=== PATIENT | female | born 1990 | race Caucasian/White ===

== ENCOUNTER 2017-01-22 14:48 | Emergency (ER) | payer SELFPAY ==
[2017-01-22 15:13] VITALS: TEMP 98.7
--- NOTE | 2017-01-22 15:49 | ED.PDOC ---
History of Present Illness - General Chief Complaint: GI Problem Stated Complaint: VOMITTING Time Seen by Provider: 01/22/17 14:53 Information Source: patient, RN notes reviewed, Vital Signs reviewed Exam Limitations: no limitations - History of Present Illness Initial Comments: Patient comes in with c/o of nausea and vomiting for the past ~2 weeks. Usually starts in the morning. Feels better after vomiting. Amount ranges from 1-4X/ day. No abdominal pain. No fever or chills. No urinary symptoms. No heartburn. Abdominal Pain Onset Location: other - No pain Pain Radiation: no radiation Quality: intermittent Timing/Duration: intermittent - over past several weeks Improving Factors: other - Vomiting Worsening Factors: nothing Associated Symptoms: nausea/vomiting Review of Systems - Review of Systems Constitutional: States: no symptoms reported. Denies: chills, fever, malaise Respiratory: States: no symptoms reported Cardiology: States: no symptoms reported Gastrointestinal/Abdominal: States: see HPI, nausea, vomiting. Denies: abdominal pain, constipation, diarrhea Genitourinary: States: no symptoms reported. Denies: dysuria, frequency Musculoskeletal: States: no symptoms reported Skin: States: no symptoms reported All other Systems: No Change from Baseline Past Medical History (General) - Patient Medical History Hx Asthma: No Hx Hypertension: No Hx Diabetes: No - Vaccination History Hx Tetanus, Diphtheria Vaccination: No Hx Influenza Vaccination: No Hx Pneumococcal Vaccination: No - Social History Hx Alcohol Use: No Hx Substance Use: Yes - RECOVERING Hx Substance Use Treatment: Yes - Female History Patient is a Female of Child Bearing Age (10 -59 yrs old): Yes Hx Last Menstrual Period: 12/20/16 Patient : No - Triage Comment ED Triage Comment: STATES TOOK MULTIPLE OTC PREG TESTS WHICH WERE NEG Family Medical History - Family History Mother Family History: Unknown Physical Exam - Physical Exam General Appearance: Alert, Comfortable, No apparent distress, Well Developed, Well Groomed, Well Hydrated, Well Nourished Neck: supple, normal inspection Respiratory: lungs clear, normal breath sounds, no respiratory distress, no accessory muscle use Cardiovascular/Chest: regular rate, rhythm, no gallop, no JVD, no murmur Gastrointestinal/Abdominal: normal bowel sounds, non tender, soft, no organomegaly, no pulsatile mass Extremity: normal inspection Neurologic: alert, normal mood/affect, oriented x 3 Skin Exam: normal color, warm/dry Comments: Vital Signs 01/22/17 15:00 Temperature 98.7 F Pulse Rate [ 81 MONITOR] Respiratory 18 Rate Blood Pressure 125/70 [Left Arm] O2 Sat by Pulse 99 Oximetry Progress - Progress Progress: 01/22/17 16:45 Benign exam with normal labs. Will treat with Protonix and Zofran Advised if not improving/resolving w/in 1 week follow up with PCP - Results/Orders Results/Orders: Laboratory Tests 01/22/17 01/22/17 01/22/17 15:07 15:52 15:52 WBC 9.4 RBC 4.69 Hgb 14.1 Hct 41.7 MCV 89.0 MCH 30.2 MCHC 33.9 RDW 11.9 Plt Count 197 MPV 8.1 Absolute Neuts (auto) 5.60 Absolute Lymphs (auto) 2.80 Absolute Monos (auto) 0.50 Absolute Eos (auto) 0.30 Absolute Basos (auto) 0.10 Neutrophils % 60.3 Lymphocytes % 30.1 Monocytes % 5.3 Eosinophils % 3.1 Basophils % 1.2 Sodium 137 Potassium 3.9 Chloride 103 Carbon Dioxide 29 Anion Gap 8.9 L BUN 14 Creatinine 0.70 BUN/Creatinine Ratio 20.0 Random Glucose 86 Serum Osmolality 273.6 L Calcium 10.0 Total Bilirubin 0.4 AST 32 ALT 43 Alkaline Phosphatase 39 L Serum Total Protein 8.3 H Albumin 4.7 Globulin 3.6 H Albumin/Globulin Ratio 1.3 Beta HCG, Quant < 0.6 Urine HCG, Qual Negative Departure - Departure Clinical Impression: Vomiting Qualifiers: Vomiting type: bilious vomiting Nausea presence: with nausea Qualified Code(s) : R11.14 - Bilious vomiting Time of Disposition: 16:47 Disposition: Discharge to Home or Self Care Condition: Good Departure Forms: ED Discharge - Pt. Copy, Patient Portal Self Enrollment Instructions: DI for Vomiting -- Adult Diet: resume usual diet Activity: increase activity as tolerated Prescriptions: Ondansetron Odt [Zofran ODT] 8 mg PO Q6HR PRN #20 tab PRN Reason: Nausea/Vomiting Pantoprazole Tablet [Protonix] 40 mg PO DAILY #30 tab Home Medications: Ambulatory Orders Ondansetron Odt [Zofran ODT] 8 mg PO Q6HR PRN #20 tab 01/22/17 Pantoprazole Tablet [Protonix] 40 mg PO DAILY #30 tab 01/22/17 Additional Instructions: If worsening or not improving in 1-2 weeks follow up with PCP
[2017-01-22 17:00] VITALS: BP 129/84; O2SAT 96
== END 2017-01-22 17:00 | disposition home or self-care (01) ==
LOC: ER 14:48
DX: R11.14 Bilious vomiting (principal)

== ENCOUNTER 2017-08-10 07:23 | Emergency (ER) | payer SELFPAY ==
[2017-08-10] MEDS ORDERED: KETOROLAC TROMETHAMINE INJ 30 MG/ML VIAL IV ONE (07:50)
[2017-08-10] MEDS ORDERED: SODIUM CHLORIDE 0.9% 1000ML 1,000 ML IVS ONE (07:50)
--- NOTE | 2017-08-10 07:51 | ED.PDOC ---
History of Present Illness - General Chief Complaint: Problem Stated Complaint: back pain, pain with urination Time Seen by Provider: 08/10/17 07:47 Source: patient Exam Limitations: no limitations - History of Present Illness Timing/Duration: unsure, 1 week Improving Factors: nothing Associated Symptoms: fever/chills, malaise Allergies/Adverse Reactions: Allergies NO KNOWN ALLERGY Allergy (Verified 08/10/17 07:39) Home Medications: Ambulatory Orders Ondansetron Odt [Zofran ODT] 8 mg PO Q6HR PRN #20 tab 01/22/17 Pantoprazole Tablet [Protonix] 40 mg PO DAILY #30 tab 01/22/17 Sulfa/Trimeth 800/160 (Ds) Tab [Bactrim DS Tab] 1 ea PO Q12HR #20 tab 08/10/17 Review of Systems - Review of Systems Constitutional: States: no symptoms reported EENTM: States: no symptoms reported Respiratory: States: no symptoms reported Cardiology: States: no symptoms reported Gastrointestinal/Abdominal: States: no symptoms reported Genitourinary: States: no symptoms reported Skin: States: no symptoms reported Neurological: States: no symptoms reported Endocrine: States: no symptoms reported Hematologic/Lymphatic: States: no symptoms reported Past Medical History (General) - Patient Medical History Hx Asthma: No Hx Hypertension: No Hx Diabetes: No Surgical History: other - Vaccination History Hx Tetanus, Diphtheria Vaccination: Yes Hx Influenza Vaccination: No Hx Pneumococcal Vaccination: No - Social History Hx Tobacco Use: Yes Hx Alcohol Use: No Hx Substance Use: No - RECOVERING Hx Substance Use Treatment: Yes - Female History Patient is a Female of Child Bearing Age (10 -59 yrs old): Yes Hx Last Menstrual Period: 12/20/16 Patient : No - Triage Comment ED Triage Comment: LMP APR 2017 with start of Depo provera control Family Medical History - Family History Mother Family History: Unknown Physical Exam - Physical Exam General Appearance: Alert, Comfortable Eye Exam: bilateral normal Ears, Nose, Throat: hearing grossly normal Neck: non-tender Respiratory: chest non-tender, lungs clear, normal breath sounds, no respiratory distress Cardiovascular/Chest: normal peripheral pulses, regular rate, rhythm, no edema, no gallop, no JVD, no murmur Back Exam: normal inspection, no CVA tenderness, no vertebral tenderness Extremity: normal range of motion, non-tender, normal inspection 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, no motor/sensory deficits, alert, normal mood/affect, oriented x 3 Progress - Results/Orders Results/Orders: Laboratory Tests 08/10/17 08/10/17 08/10/17 07:45 08:08 08:08 WBC 12.3 H RBC 4.38 Hgb 12.9 Hct 37.4 MCV 85.5 MCH 29.4 MCHC 34.4 RDW 12.6 Plt Count 183 MPV 7.5 Absolute Neuts (auto) 11.20 H Absolute Lymphs (auto) 0.70 L Absolute Monos (auto) 0.30 Absolute Eos (auto) 0.10 Absolute Basos (auto) 0.10 Neutrophils % 90.6 H Lymphocytes % 5.4 L Monocytes % 2.6 Eosinophils % 0.8 L Basophils % 0.6 Sodium 136 Potassium 3.7 Chloride 105 Carbon Dioxide 24 Anion Gap 10.7 L BUN 13 Creatinine 0.72 BUN/Creatinine Ratio 18.1 Random Glucose 108 H Serum Osmolality 272.6 L Calcium 9.1 Total Bilirubin 1.1 H AST 30 ALT 42 Alkaline Phosphatase 40 L Serum Total Protein 6.8 Albumin 3.9 Globulin 2.9 Albumin/Globulin Ratio 1.3 Urine Color Yellow Urine Appearance Sl cloudy Urine pH 7.0 Ur Specific Lafferty 1.020 Urine Protein Negative Urine Glucose (UA) Negative Urine Ketones Negative Urine Blood Trace-intact H Urine Nitrite Positive H Urine Bilirubin Negative Urine Urobilinogen 0.2 Ur Leukocyte Esterase Small H Urine RBC 5-10 H Urine WBC Tntc H Ur Epithelial Cells 3-5 Urine Bacteria 4+ H Departure - Departure Clinical Impression: Urinary tract infection Time of Disposition: 08:40 Disposition: Discharge to Home or Self Care Condition: Good Departure Forms: ED Discharge - Pt. Copy, Patient Portal Self Enrollment Diet: resume usual diet Prescriptions: Sulfa/Trimeth 800/160 (Ds) Tab [Bactrim DS Tab] 1 ea PO Q12HR #20 tab Home Medications: Ambulatory Orders Ondansetron Odt [Zofran ODT] 8 mg PO Q6HR PRN #20 tab 01/22/17 Pantoprazole Tablet [Protonix] 40 mg PO DAILY #30 tab 01/22/17 Sulfa/Trimeth 800/160 (Ds) Tab [Bactrim DS Tab] 1 ea PO Q12HR #20 tab 08/10/17
[2017-08-10] MEDS ORDERED: cefOXitin SODIUM 1 GM in SODIUM CHL 0.9% 50ML MIN-BAG+ 50 ML IVPB SCH (08:00)
[2017-08-10] MEDS ORDERED: SODIUM CHL 0.9% 50ML MIN-BAG+ 50 ML IVPB ONE (08:06)
[2017-08-10 09:28] VITALS: BP 105/62; TEMP 99.2; O2SAT 95
== END 2017-08-10 09:27 | disposition home or self-care (01) ==
LOC: ER 07:23
DX: N39.0 Urinary tract infection, site not specified (principal); Z87.891 Personal history of nicotine dependence
CPT/HCPCS: 36415; 80053; 81001; 85025; 87040; 87086; J0694; J1885; J7030; J7050